=== PATIENT | female | born 1980 | race Caucasian/White ===

== ENCOUNTER 2017-10-16 15:45 | Inpatient (IN) | payer OTHER ==
[2017-10-16 17:15] LABS: BASO % 0.5 % (0-2.0); EOS % 1.3 % (0-4.5); HEMATOCRIT 36.9 % (32.4-45.2); HEMOGLOBIN 12.6 GM/dL (10.7-15.3); LYMPH % 30.2 % (8-40); MCH 30.7 pg (25.7-33.7); MEAN CELL VOLUME 90.1 fl (80-96); MEAN PLT VOLUME 9.8 fl (7.5-11.1); MONO % 6.6 % (3.8-10.2); NEUT % 61.4 % (42.8-82.8); PLATELET COUNT 203 K/MM3 (134-434); RDW 17.4 % (11.6-15.6); WHITE BLOOD COUNT 8.2 K/mm3 (4.0-10.0)
[2017-10-16] MEDS ORDERED: ELECTROLYTE-148 SOLN 500 ML IV ONE (17:15)
[2017-10-16] MEDS ORDERED: CITRIC ACID/SODIUM CITRATE 30 ML UNIT-DOSE CUP PO ONE (17:15)
[2017-10-16 17:29] LABS: INR 0.95 (0.82-1.09); PROTHROMBIN TIME (PATIENT) 10.7 SEC (9.7-13.0)
[2017-10-16 17:32] LABS: ACTIVATED PTT 30.7 SECONDS (25.2-36.5)
[2017-10-16] MEDS ORDERED: ELECTROLYTE-148 SOLN 1,000 ML IV SCH ×2 (17:45→20:00)
[2017-10-16 17:48] LABS: ANION GAP 8 (8-16); BLOOD UREA NITROGEN 7 mg/dL (7-18); CALCIUM 8.4 mg/dL (8.5-10.1); CHLORIDE 109 mmol/L (98-107); CO2 23 mmol/L (21-32); CREATININE 0.9 mg/dL (0.55-1.02); GLUCOSE,RANDOM 83 mg/dL (74-106); POTASSIUM 3.9 mmol/L (3.5-5.1); SODIUM 140 mmol/L (136-145)
[2017-10-16 18:01] VITALS: BMI 27.3
[2017-10-16] MEDS ORDERED: OXYTOCIN 20 UNITS in 0.9% NS 20 UNIT/1,000 ML INFUS.BAG IV ONE ×2 (19:44→21:42)
[2017-10-16] MEDS ORDERED: morphine SULFATE/Preservative Free 0.5 MG/ML (1cc Syringe) ONE ×2 (19:49→20:27)
[2017-10-16] MEDS ORDERED: ceFAZolin SODIUM 1 GM VIAL ONE (19:49)
[2017-10-16] MEDS ORDERED: SUCCINYLCHOLINE CHLORIDE 200 MG/10 ML VIAL ONE (19:49)
[2017-10-16] MEDS ORDERED: PROPOFOL 20 ML ONE (19:49)
[2017-10-16] MEDS ORDERED: BUPIVACAINE 0.75% IN DEXTROSE/PF 2ML AMPULE NR ONE ×2 (19:52→20:25)
--- NOTE | 2017-10-16 20:09 | HP ---
Past Medical History - Primary Care Physician PCP:: Nish Short - Admission Chief Complaint: 37yo P1 with twin at EGA 38w1d admitted for repeat C/ S in early labor. 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: No: Alzheimer's, CVA, Dementia, Migraine, Multiple Sclerosis, Peripheral Neuropathy, Parkinson's, Seizure, Syncope, TIA, Vertigo, Other Cardiovascular: No: AFIB, Aneurysm, Aortic Insufficiency, Aortic Stenosis, CAD, CHF, Deep Vein Thrombosis, HTN, Hyperlipdemia, MA, Mitral Insufficiency, Mitral Stenosis, Murmur, Pulmonary Hypertension, Other Pulmonary: No: Asthma, Bronchitis, Cancer, COPD, O2 Dependent, Pneumonia, Previously Intubated, Pulmonary Embolus, Pulmonary Fibrosis, Sleep Apnea, Other Gastrointestinal: No: Ascites, Cancer, Constipation, Crohn's Disease, Diverticulitis, Diverticulosis, Esophageal Varices, Gastritis, GERD, GI Bleed, Hemorrhoids, Hiatal Hernia, Inflamatory Bowel Disease, Irritable Bowel Disease, Pancreatitis, Peptic Ulcer Disease, Ulcerative Colitis, Other Hepatobiliary: No: Cirrhosis, Cholelithiasis, Cholecystitis, Choledocholithiasis , Hepatitis A, Hepatitis B, Hepatitis C, Other Renal/: No: Renal Failure, Renal Inusuff, BPH, Cancer, Hematuria, Hemodialysis , Neurogenic Bladder, Renal Calculi, UTI, Other Reproductive: No: Ectopic , Endometriosis, Fibroids, PID, Polycystic Ovary Syndrome, Postmenopausal, Other ...: 2 ...Para: 1 (C/S) ...Term: 1 ...: 0 ...Spon : 0 ...Induced : 0 ...Multiple Gestation: 0 ...LMP: 01/23/17 ...EDC by Sono: 10/30/17 Heme/Onc: Yes: Anemia Infectious Disease: No: AIDS, C-Diff, Herpes Zoster, HIV, MRSA, STD's, Tuberculosis, VREF, Other Psych: No: Addictions, Anxiety, Bipolar, Depression, Panic, Psychosis, Schizophrenia, Other Musculoskeletal: No: Bursitis, Chronic low back pain, Hemiparesis, Hemiplegia, Osteoarthritis, Paraplegia, Other Rheumatology: No: Fibromyalgia, Gout, Lupus, Rheumatoid Arthritis, Sarcoidosis, Vasculitis, Other ENT: No: Allergic Rhinitis, Sinusitis, Other Endocrine: No: Emanuel's Disease, Oz's Disease, Diabetes Insipidus, Diabetes Mellitus, Hyperparathyroidism, Hyperthyroidism, Hypothyroidism, Osteopenia, SIADH, Other Dermatology: No: Basal Cell, Cellulitis, Eczema, Melanoma, Psoriasis, Squamous Cell, Other - Past Surgical History Past Surgical History: Yes: , Tonsillectomy Hx Myomectomy: No Hx Transabdominal Cerclage: No Additional Surgical History: Breast Augmentation, nasal surgery x 2 - Smoking History Smoking history: Never smoked Have you smoked in the past 12 months: No - Alcohol/Substance Use Hx Alcohol Use: No History of Substance Use: reports: None - Social History Usual Living Arrangement: Yes: With Spouse, With Child ADL: Independent History of Recent Travel: No Home Medications - Allergies Allergies/Adverse Reactions: Allergies Allergy/AdvReac Type Severity Reaction Status Date / Time No Known Drug Allergies Allergy Verified 10/16/17 18:38 medical tape Allergy Intermediate Rash Uncoded 10/16/17 18:30 - Home Medications Home Medications: Ambulatory Orders Vit No.130/Iron/Folic [ Vitamins] 1 each PO DAILY 06/09/14 Family Disease History - Family Disease History Family History: Unremarkable Review of Systems - Review of Systems Constitutional: reports: Other (contractions) Eyes: reports: No Symptoms HENT: reports: No Symptoms Neck: reports: No Symptoms Cardiovascular: reports: No Symptoms Respiratory: reports: No Symptoms Gastrointestinal: reports: No Symptoms Genitourinary: reports: No Symptoms Breasts: reports: No Symptoms Reported Musculoskeletal: reports: No Symptoms Integumentary: reports: No Symptoms Neurological: reports: No Symptoms Endocrine: reports: No Symptoms Hematology/Lymphatic: reports: No Symptoms Psychiatric: reports: No Symptoms Pain Intensity: 3 Physical Exam - Maternity Vital Signs: Vital Signs Temperature 98.6 F 10/16/17 18:00 Pulse Rate 80 10/16/17 18:00 Respiratory Rate 20 10/16/17 18:00 Blood Pressure 110/70 10/16/17 18:00 O2 Sat by Pulse Oximetry (%) Constitutional: Yes: Well Nourished, No Distress, Calm Eyes: Yes: WNL, Conjunctiva Clear HENT: Yes: WNL, Atraumatic, Normocephalic Neck: Yes: WNL, Supple, Trachea Midline Cardiovascular: Yes: WNL, Regular Rate and Rhythm Lungs: Clear to auscultation, Normal air movement Breast(s): Yes: WNL - Abdominal Exam/OB Fundal Height: 42 Number of Fetuses: Multiple Presentation: Vertex Contractions: Yes Regularity: Irregular Intensity: Mild Monitor Mode: External Heart Rate (range): 140 Heart Rate Location: Midline Category: I Accelerations: Non-Uniform Decelerations: None - Vaginal Exam/OB Vaginal Bleediing: No Speculum Exam: No Dilatation (cm): 3 Effacement (%): 90 Amniotic Membrane Status: Bulging Presentation: Vertex/Position Station: -3 - Physical Exam Musculoskeletal: Yes: WNL Extremities: Yes: WNL Edema: Yes Edema: LLE: Trace, RLE: Trace Integumentary: Yes: WNL Deep Tendon Reflex Grade: Normal +2 ...Motor Strength: WNL Psychiatric: Yes: WNL, Alert, Oriented - Labs Lab Results: CBC, BMP 10/16/17 17:00 10/16/17 17:00 Hemorrhage Risk Assessment - Risk Factors Medium Risk Factors: Yes: Prior , uterine surgery,or multiple laparotomies, Multiple gestation High Risk Factors: Yes: None Risk Score: 2 Risk Level: High Risk Imaging - Results Ultrasound: Report Reviewed Assessment/Plan 37yo P1 with twin at EGA 38w1d admitted for repeat C/S in early labor. We discussed the risks and benefits of C/S at length, including but not limited to scarring, pain, bleeding, infection, injury to underlying organs and structures, need for additional surgery to repair/treat any problems or complications, complications/injuries, etc. The pt verbalized her understanding and requested to proceed with surgery. The pt is aware that all surgeries have risks and no guarantees can be provided.
[2017-10-16] MEDS ORDERED: ONDANSETRON 4 MG/2 ML VIAL IVPUSH PRN (20:11)
[2017-10-16] MEDS ORDERED: MIDAZOLAM HCL 2 MG/2 ML SINGLE DOSE VIAL ONE (21:32)
[2017-10-16] MEDS ORDERED: IBUPROFEN 800 MG/8 ML IJ IVPB PRN (22:01)
[2017-10-16] MEDS ORDERED: METHYLERGONOVINE MALEATE 0.2 MG/1 ML AMP IM PRN (22:01)
--- NOTE | 2017-10-16 22:08 | OP ---
Operative Note - Note: Operative Date: 10/16/17 Pre-Operative Diagnosis: at EGA 38w1d with twin gestation. Prior C/ S. Spont labor Operation: Repeat LT C/S Findings: Live baby girl in vtx presentation Live baby boy in vtx presentation No meconium in amniotic fluid Normal ovaries, tubes, uterus Post-Operative Diagnosis: Same as Pre-op Surgeon: Nish Short Manager Golf: Ligia Liu Anesthesiologist/FRAME MAKER: Bart Avalos Anesthesia: Spinal Specimens Removed: Placenta Estimated Blood Loss (mls): 700 Drains & Tubes with Location: Figueroa cath Drains, Volume Out (mls): 300 Blood Volume Replaced (mls): 0 Fluid Volume Replaced (mls): 1,900 Operative Report Dictated: Yes
[2017-10-16] MEDS ORDERED: OXYTOCIN 20 UNITS in 0.9% NS 20 UNIT/1,000 ML INFUS.BAG IV SCH (22:15)
[2017-10-16] MEDS ORDERED: ONDANSETRON 4 MG/2 ML VIAL ONE (22:20)
--- NOTE | 2017-10-17 07:51 | OP ---
DATE OF OPERATION: 10/16/2017 PREOPERATIVE DIAGNOSIS: at estimated gestational age of 38 weeks and 1 day, twin gestation, previous section, spontaneous labor. POSTOPERATIVE DIAGNOSIS: at estimated gestational age of 38 weeks and 1 day, twin gestation, previous section, spontaneous labor, delivered. PROCEDURE: Repeat low transverse section via Pfannenstiel skin incision. SURGEON: Nish Short MD LAUNDRY EQUIPMENT OPERATOR: Ligia Liu MD ANESTHESIOLOGIST: Bart Avalos MD ANESTHESIA: Spinal. COMPLICATIONS: None. PATHOLOGY: Placenta. ESTIMATED BLOOD LOSS: 700 mL. URINE OUTPUT: Clear urine, 300 mL, at the end of the procedure. INTRAVENOUS FLUIDS: Crystalloid, 1900 mL. FINDINGS: Live baby girl in vertex presentation. No meconium in amniotic fluids. Live baby boy in vertex presentation. No meconium in amniotic fluid. Normal ovaries, fallopian tubes, and normal uterus. DESCRIPTION OF PROCEDURE: The patient was met preoperatively. Risks, benefits, and alternatives of surgery were discussed in details. All questions were answered. The patient was then brought to the OR with IV running. She was placed on the surgical table in the supine position. The patient was the sat up to a sitting position, and spinal anesthesia was achieved without difficulty. The patient was then placed in a supine position with a leftward tilt. The Figueroa catheter was inserted and left to drain to gravity. The patient was prepped and draped in the usual sterile fashion. A time-out was conducted as per standard protocol. The surgeons then proceeded with the section. A Pfannenstiel skin incision was made with the knife along the prior scar. The incision was taken down to the level of fascia. The fascia was incised in the midline, and the incision was extended bilaterally using Gibbs scissors. The fascia was dissected away from the rectus muscles superiorly and inferiorly using sharp dissection. The rectus muscles were in the midline. The peritoneum was entered sharply. The peritoneal incision was extended superiorly and inferiorly using Metzenbaum scissors. The bladder was then dissected away from the lower uterine segment using sharp dissection. The bladder was reflected downwards using a Meliton retractor. The uterus was entered transversely in the lower uterine segment. The uterine incision was extended bilaterally using bandage scissors. The amniotic sac of baby A was ruptured, and no meconium was noted. The baby A was delivered from vertex presentation. The baby was a girl, crying spontaneously. The umbilical cord was clamped and cut, and the baby was handed to the awaiting reclaimer. The second amniotic sac was then ruptured, and no meconium was noted. Baby B was delivered from vertex presentation without complications. Baby B was a boy and crying spontaneously. The umbilical cord was clamped and cut, and the baby was handed to the awaiting reclaimer. The placenta was then expressed manually. The placenta was sent to Pathology. The uterus was cleared of all clots and debris using moist laparotomy labs. The uterine incision was repaired using a 0 Biosyn suture with a running locking stitch. Good hemostasis was noted. The uterine incision was then imbricated using a secondary layer of closure with a Biosyn suture. Once again, good hemostasis was confirmed. The bladder peritoneum was then approximated using a running 0 Biosyn suture. The operative site was irrigated using copious amounts of normal saline. Once the saline was aspirated, good hemostasis was confirmed. The abdominal peritoneum was closed using a 2-0 chromic suture with a running stitch. The rectus muscles were approximated in the midline using several interrupted 2-0 chromic sutures. The fascia was closed using a 0 Vicryl suture in 2 segments with good hemostasis and approximation. The subcutaneous adipose tissues and Scarpas fascia were approximated using several interrupted 2-0 chromic sutures. The skin was then closed using a 4-0 Vicryl suture with a subcutaneous stitch. Sponge, lap, and needle counts were correct. The patient tolerated the procedure well and was transferred to the recovery room in stable condition. Mundo [id number]
[2017-10-17 08:24] LABS: BASO % 0.4 % (0-2.0); EOS % 0.1 % (0-4.5); HEMATOCRIT 41.6 % (32.4-45.2); HEMOGLOBIN 13.8 GM/dL (10.7-15.3); LYMPH % 15.3 % (8-40); MCH 30.7 pg (25.7-33.7); MCHC 33.3 g/dl (32.0-36.0); MEAN CELL VOLUME 92.2 fl (80-96); MEAN PLT VOLUME 9.8 fl (7.5-11.1); MONO % 6.2 % (3.8-10.2); PLATELET COUNT 175 K/MM3 (134-434); RBC 4.51 M/mm3 (3.60-5.2); RDW 17.2 % (11.6-15.6); WHITE BLOOD COUNT 15.6 K/mm3 (4.0-10.0)
[2017-10-17] MEDS: PRENATAL VITAMINS W/ FOLIC ACID TABLET (FP) PO SCH (09:22)
[2017-10-17] MEDS: ENOXAPARIN NA (PORCINE) 40 MG/0.4 ML DISP.SYRIN SQ SCH (09:22)
[2017-10-17] MEDS ORDERED: TUBERCULIN PPD 5 TU/0.1ML SYRINGE (IN PATIENT USE ONLY) ID ONE (10:00)
--- NOTE | 2017-10-17 10:58 | PN ---
Post Progress Note - Subjective Subjective: No complains Post Day: 1 Type of Delivery: Repeat C/S Vital Signs: Vital Signs Temperature 97.7 F 10/17/17 09:44 Pulse Rate 52 L 10/17/17 09:44 Respiratory Rate 20 10/17/17 10:00 Blood Pressure 132/73 10/17/17 09:44 O2 Sat by Pulse Oximetry (%) 99 10/16/17 23:45 Breast Exam: Yes: Soft Uterus: Yes: Fundus Firm Incision: Yes: Dressing dry and intact Abdomen/GI: Yes: Abdomen soft Lochia: Yes: Rubra Lochia, amount: Heavy (Dark clots expressed) Extremities: Yes: Calves non-tender Perineum: Yes: Intact Activity: Ambulating - Labs Labs: CBC WBC 15.6 K/mm3 (4.0-10.0) H 10/17/17 07:40 RBC 4.51 M/mm3 (3.60-5.2) 10/17/17 07:40 Hgb 13.8 GM/dL (10.7-15.3) 10/17/17 07:40 Hct 41.6 % (32.4-45.2) 10/17/17 07:40 MCV 92.2 fl (80-96) 10/17/17 07:40 MCH 30.7 pg (25.7-33.7) 10/17/17 07:40 MCHC 33.3 g/dl (32.0-36.0) 10/17/17 07:40 RDW 17.2 % (11.6-15.6) H 10/17/17 07:40 Plt Count 175 K/MM3 (134-434) 10/17/17 07:40 MPV 9.8 fl (7.5-11.1) 10/17/17 07:40 Absolute Neuts (auto) 12.1 # 10/17/17 07:40 Neutrophils % 78.0 % (42.8-82.8) D 10/17/17 07:40 Lymphocytes % 15.3 % (8-40) D 10/17/17 07:40 Monocytes % 6.2 % (3.8-10.2) 10/17/17 07:40 Eosinophils % 0.1 % (0-4.5) D 07/10/18 07:40 Basophils % 0.4 % (0-2.0) 10/17/17 07:40 Nucleated RBC % 0 % (0-0) 10/17/17 07:40 Assessment/Plan 37yo POD #1 s/p Repeat c/section Doing well, VSS, Afebrile Figueroa to be d/nuha @ noon, continue routine care Rh positive, no need for RhoGam
--- NOTE | 2017-10-17 14:17 | PN ---
Progress Note (short form) - Note Progress Note: Anesthesia Post-op Note Pt s/p on 10/16/17 with spinal + duramorph. Pt reports that she is feeling well. Reports pain in lower abdomen controlled on current regimen. Reports normal strength and sensation in lower extremities. Tolerating PO and ambulating without issue. Vital Signs Temperature 97.7 F 10/17/17 09:44 Pulse Rate 52 L 10/17/17 09:44 Respiratory Rate 20 10/17/17 12:00 Blood Pressure 132/73 10/17/17 09:44 O2 Sat by Pulse Oximetry (%) 99 10/16/17 23:45 Continue current regimen. Encourage ambulation. Bowel regimen with pain medication.
[2017-10-17] MEDS: oxyCODONE HCL 5 MG TABLET PO PRN ×2 (15:05→23:33)
[2017-10-17] MEDS: SIMETHICONE 80 MG TAB.CHEW (FP) PO PRN ×2 (15:05→23:34)
[2017-10-17] MEDS: IBUPROFEN 600 MG TABLET (FP) PO PRN ×2 (15:06→23:33)
[2017-10-17] MEDS ORDERED: BISACODYL 10 MG SUPP.RECT RC PRN (22:01)
[2017-10-18] MEDS: oxyCODONE HCL 5 MG TABLET PO PRN ×4 (07:25→23:15)
[2017-10-18] MEDS: SIMETHICONE 80 MG TAB.CHEW (FP) PO PRN ×4 (07:25→23:15)
[2017-10-18] MEDS: IBUPROFEN 600 MG TABLET (FP) PO PRN ×4 (07:26→23:15)
--- NOTE | 2017-10-18 08:28 | PN ---
Post Progress Note - Subjective Subjective: No complaints Post Day: 2 Type of Delivery: Repeat C/S Vital Signs: Vital Signs Temperature 97.9 F 10/17/17 22:00 Pulse Rate 60 10/17/17 22:00 Respiratory Rate 20 10/17/17 22:00 Blood Pressure 104/55 10/17/17 22:00 O2 Sat by Pulse Oximetry (%) 99 10/16/17 23:45 Breast Exam: Yes: Soft Uterus: Yes: Fundus Firm, Fundus below umbilicus, Non-tender Incision: Yes: Sutures intact Abdomen/GI: Yes: Abdomen soft, Passing flatus, Tolerating PO Lochia: Yes: Rubra Lochia, amount: Small Extremities: Yes: Calves non-tender Perineum: Yes: Intact Activity: Ambulating - Labs Labs: CBC WBC 15.6 K/mm3 (4.0-10.0) H 10/17/17 07:40 RBC 4.51 M/mm3 (3.60-5.2) 10/17/17 07:40 Hgb 13.8 GM/dL (10.7-15.3) 10/17/17 07:40 Hct 41.6 % (32.4-45.2) 10/17/17 07:40 MCV 92.2 fl (80-96) 10/17/17 07:40 MCH 30.7 pg (25.7-33.7) 10/17/17 07:40 MCHC 33.3 g/dl (32.0-36.0) 10/17/17 07:40 RDW 17.2 % (11.6-15.6) H 10/17/17 07:40 Plt Count 175 K/MM3 (134-434) 10/17/17 07:40 MPV 9.8 fl (7.5-11.1) 10/17/17 07:40 Absolute Neuts (auto) 12.1 # 10/17/17 07:40 Neutrophils % 78.0 % (42.8-82.8) D 10/17/17 07:40 Lymphocytes % 15.3 % (8-40) D 10/17/17 07:40 Monocytes % 6.2 % (3.8-10.2) 10/17/17 07:40 Eosinophils % 0.1 % (0-4.5) D 10/17/17 07:40 Basophils % 0.4 % (0-2.0) 10/17/17 07:40 Nucleated RBC % 0 % (0-0) 10/17/17 07:40 Assessment/Plan 37yo P2 s/p repeat LT C/S, doing well stable, afebrile. care instructions reviewed. Continue routine postop care. Discharge instructions reviewed Ambulation encouraged.
--- NOTE | 2017-10-18 08:33 | DS ---
Physical Exam-OPTOMETRIST/PRACTICE OWNER Vital Signs: Vital Signs Temperature 97.9 F 10/17/17 22:00 Pulse Rate 60 10/17/17 22:00 Respiratory Rate 20 10/17/17 22:00 Blood Pressure 104/55 10/17/17 22:00 O2 Sat by Pulse Oximetry (%) 99 10/16/17 23:45 Constitutional: Yes: Well Nourished, No Distress, Calm Eyes: Yes: WNL, Conjunctiva Clear HENT: Yes: WNL, Atraumatic, Normocephalic Neck: Yes: WNL, Supple, Trachea Midline Cardiovascular: Yes: WNL, Regular Rate and Rhythm Respiratory: Yes: WNL, Regular, CTA Bilaterally Gastrointestinal: Yes: WNL, Normal Bowel Sounds, Soft ...Rectal Exam: Yes: Deferred Renal/: Yes: WNL External Genitalia: Yes: Normal Internal Exam Deferred: Yes ....Post : Yes: Uterus firm, Uterus non-tender, Slight lochia rubra Breast(s): Yes: WNL Musculoskeletal: Yes: WNL Extremities: Yes: WNL Edema: Yes Edema: LLE: Trace, RLE: Trace Integumentary: Yes: WNL Wound/Incision: Yes: Clean/Dry, Well Approximated, Sutures Intact Neurological: Yes: WNL, Alert, Oriented ...Motor Strength: WNL Psychiatric: Yes: WNL, Alert, Oriented Labs: CBC, BMP 10/17/17 07:40 10/16/17 17:00 Delivery - Delivery Section: Repeat, Low Flap Transverse Type of Anesthesia: Spinal Episiotomy/Laceration: None EBL (cc): 700 Delivery, Single - [place] Feeding Plan Initial Plan: Exclusive throughout hospitalization Delivery, Multiple Births - Stages of Labor Delivery Baby "A" Date: 10/16/17 Time: 21:03 Placenta/Membranes "A" Date: 10/16/17 Time: 21:07 Delivery Baby "B" Date: 10/16/17 Time: 21:05 Placenta/Membranes "B" Date: 10/16/17 Time: 21:07 - Condition of Multiple Births [place] 1 (A) Seafood Preparer/Director Mortgage Present: Yes Seafood Preparer: Ervin Adkins Gender: Female Weight: 2.892 kg Position: Left, OA Total Hours ROM (HRS/MINS): 5 minutes Placenta: Yes: Spontaneous, Normal Configuration [place] 2 (B) Seafood Preparer/Director Mortgage Present: Yes Seafood Preparer: Ervin Adkins Infant Gender: Male Weight: 3.952 kg Position: Right, OA Total Hours ROM (HRS/MINS): 5 minutes Placenta: Yes: Spontaneous, Normal Configuration - [place] 1 (A) 1 Minute Score: 9 1 (A) 5 Minutes Score: 9 [place] 2 (B) 1 Minute Score: 9 2 (B) 5 Minutes Score: 9 Discharge Summary Reason For Visit: C SECTION Twin , prior C/S, spont labor, AMA Procedures: Principal: Repeat LT C/S Hospital Course: Normal recovery Condition: Good - Instructions Diet, Activity, Other Instructions: Physical activity Resume your normal everyday activity as tolerated no heavy lifting or exercise until seen by your surgeon. You may walk unlimited ramon of and climb stairs. You may resume driving the car when you feel safe and comfortable behind the wheel. No sexual activity as instructed. Wound care If you have a bandage, leave it on, and keep dry for 48-72 hours. After that time discard the outer bandage. If they are tapes on the skin under the out of bandage leave them in place. They will peel off in the next 7 to 10 days. Do Not Peel them off. You may shower the day after surgery. If there are tapes present on the skin, you may shower over them. Diet There are no dietary restrictions. Eat healthy, high-fiber foods. Drink 6 to 8 glasses of liquid each day. This will assist in keeping your bowels are regular. Pain management You may take Tylenol or acetaminophen or Ibuprofen (for example, Motrin, Advil etc.) from my pain prescription medication is ordered should be taken as prescribed for moderate to severe pain. Call MD for any of the following: Severe pain not relieved by medication Fever of 101 or higher Excessive bleeding or drainage on dressing Inability to urinate Referrals: Nish Short MD [Staff Physician] - Disposition: HOME - Home Medications Comprehensive Discharge Medication List: Ambulatory Orders Vit No.130/Iron/Folic [ Vitamins] 1 each PO DAILY 06/09/14
[2017-10-18] MEDS: PRENATAL VITAMINS W/ FOLIC ACID TABLET (FP) PO SCH (10:50)
[2017-10-18] MEDS: ENOXAPARIN NA (PORCINE) 40 MG/0.4 ML DISP.SYRIN SQ SCH (10:50)
--- NOTE | 2017-10-19 00:46 | PN ---
Post Progress Note - Subjective Subjective: Patient without acute complaints. Reports tolerating oral intake without nausea or vomiting. Ambulating without dizziness. Denies fevers or chills. Pain well controlled with oral pain medication. without difficulty. Passing flatus. Post Day: 3 Type of Delivery: Repeat C/S Vital Signs: Vital Signs Temperature 98.0 F 10/18/17 21:17 Pulse Rate 71 10/18/17 21:17 Respiratory Rate 20 10/18/17 21:17 Blood Pressure 126/83 10/18/17 21:17 O2 Sat by Pulse Oximetry (%) 99 10/16/17 23:45 Breast Exam: Yes: Engorged Uterus: Yes: Fundus Firm, Fundus below umbilicus Incision: Yes: Sutures intact. No: Redness, Oozing Abdomen/GI: Yes: Abdomen soft, Abdominal Distention, Tender (incisional), Passing flatus, Tolerating PO Lochia: Yes: Serosa Lochia, amount: Small Extremities: Yes: Calves non-tender, Edema (trace) Activity: Ambulating - Labs Labs: CBC WBC 15.6 K/mm3 (4.0-10.0) H 10/17/17 07:40 RBC 4.51 M/mm3 (3.60-5.2) 10/17/17 07:40 Hgb 13.8 GM/dL (10.7-15.3) 10/17/17 07:40 Hct 41.6 % (32.4-45.2) 10/17/17 07:40 MCV 92.2 fl (80-96) 10/17/17 07:40 MCH 30.7 pg (25.7-33.7) 10/17/17 07:40 MCHC 33.3 g/dl (32.0-36.0) 10/17/17 07:40 RDW 17.2 % (11.6-15.6) H 10/17/17 07:40 Plt Count 175 K/MM3 (134-434) 10/17/17 07:40 MPV 9.8 fl (7.5-11.1) 10/17/17 07:40 Absolute Neuts (auto) 12.1 # 10/17/17 07:40 Neutrophils % 78.0 % (42.8-82.8) D 10/17/17 07:40 Lymphocytes % 15.3 % (8-40) D 10/17/17 07:40 Monocytes % 6.2 % (3.8-10.2) 10/17/17 07:40 Eosinophils % 0.1 % (0-4.5) D 10/17/17 07:40 Basophils % 0.4 % (0-2.0) 10/17/17 07:40 Nucleated RBC % 0 % (0-0) 10/17/17 07:40 Assessment/Plan 37 yo POD # 3 s/p CD, afebrile, vital signs stable, doing well 1. Patient desires discharge home tomorrow. 2. Patient encouraged to contact MD for: - Severe pain not controlled by oral pain medication - Fevers or chills - Nausea or vomiting, intolerance of oral intake - Incision redness, tenderness or discharge 3. Patient to follow up in office in 1-2 weeks for incision check, 4-6 weeks for visit
[2017-10-19 07:23] LABS: BASO % 0.8 % (0-2.0); EOS % 2.6 % (0-4.5); HEMATOCRIT 35.5 % (32.4-45.2); HEMOGLOBIN 12.4 GM/dL (10.7-15.3); LYMPH % 28.1 % (8-40); MCH 31.7 pg (25.7-33.7); MCHC 34.9 g/dl (32.0-36.0); MEAN CELL VOLUME 90.9 fl (80-96); MONO % 6.9 % (3.8-10.2); NEUT % 61.6 % (42.8-82.8); PLATELET COUNT 212 K/MM3 (134-434); RBC 3.91 M/mm3 (3.60-5.2); RDW 17.7 % (11.6-15.6); WHITE BLOOD COUNT 9.8 K/mm3 (4.0-10.0)
[2017-10-19] MEDS: PRENATAL VITAMINS W/ FOLIC ACID TABLET (FP) PO SCH (10:00)
[2017-10-19] MEDS: ENOXAPARIN NA (PORCINE) 40 MG/0.4 ML DISP.SYRIN SQ SCH (10:00)
[2017-10-19] MEDS: IBUPROFEN 600 MG TABLET (FP) PO PRN ×2 (17:54→22:35)
[2017-10-19] MEDS: SIMETHICONE 80 MG TAB.CHEW (FP) PO PRN ×2 (17:55→22:35)
[2017-10-19] MEDS ORDERED: oxyCODONE HCL 5 MG TABLET PO PRN (22:22)
[2017-10-19] MEDS ORDERED: ACETAMINOPHEN 325 MG TABLET (FP) PO PRN (22:23)
[2017-10-19] MEDS ORDERED: SENNOSIDES 8.6MG TABLET (FP) PO PRN (22:42)
[2017-10-19] MEDS ORDERED: SENNOSIDES/DOCUSATE COMBO (SENNA PLUS) TABLET (UD) PO PRN (23:05)
--- NOTE | 2017-10-20 07:33 | PN ---
Progress Note (short form) - Note Progress Note: pod 4 , doing well, ambulating CBC, BMP 10/19/17 06:30 10/16/17 17:00 abdomen soft, no distension, no cva uterus firm, lnon tender lochia mild no calf tenderness plan d/c home today , follow up office 1 week
[2017-10-20 08:22] VITALS: BP 115/84; PULSE 83; TEMP 98.6
[2017-10-20] MEDS: PRENATAL VITAMINS W/ FOLIC ACID TABLET (FP) PO SCH (09:32)
[2017-10-20] MEDS: ENOXAPARIN NA (PORCINE) 40 MG/0.4 ML DISP.SYRIN SQ SCH (09:32)
== END 2017-10-20 10:40 | disposition home or self-care (01) | DRG 765 ==
LOC: JLDR 15:45 → J3W 10-17 00:30
PROVIDERS: ADMIT Obstetrics & Gynecology; ATTEND Obstetrics & Gynecology
PROC: 10D00Z1 Extraction of Products of Conception, Low, Open Approach (ICD-10-PCS; principal; 2017-10-16)
DX: O30.043 Twin pregnancy, dichorionic/diamniotic, third trimester (principal); O36.0930 Maternal care for other rhesus isoimmunization, third trimester, not applicable or unspecified; O34.211 Maternal care for low transverse scar from previous cesarean delivery; O99.824 Streptococcus B carrier state complicating childbirth; Z3A.38 38 weeks gestation of pregnancy; Z37.2 Twins, both liveborn
CPT/HCPCS: 36415; 80048; 85025; 85610; 85730; 86593; 86850; 86900; 86901

== ENCOUNTER 2022-12-03 02:40 | Inpatient (IN) | payer OTHER ==
[2022-12-03] MEDS ORDERED: OXYTOCIN 30 UNITS in 0.9% NS 30 UNIT/500 ML INFUS.BAG IVPB ONE (03:44)
[2022-12-03] MEDS ORDERED: ONDANSETRON 4 MG/2 ML VIAL ONE (03:45)
[2022-12-03] MEDS ORDERED: METOCLOPRAMIDE HCL INJECTION 10 MG/2 ML VIAL ONE (03:45)
[2022-12-03] MEDS ORDERED: PHENYLEPHRINE HCL 10 MG/1 ML SINGLE DOSE VIAL ONE (03:45)
[2022-12-03] MEDS ORDERED: ceFAZolin SODIUM 1 GM VIAL ONE (03:45)
[2022-12-03] MEDS ORDERED: DEXAMETHASONE SOD PHOSPHATE 4 MG/1 ML VIAL ONE (03:45)
[2022-12-03] MEDS ORDERED: FENTANYL CITRATE/PF 50 MCG/ML VIAL ONE (03:49)
[2022-12-03] MEDS ORDERED: morphine SULFATE/PF 1 MG/2 ML (2cc Syringe - QUVA) ONE (03:49)
[2022-12-03] MEDS ORDERED: morphine SULFATE/PF 1 MG/2 ML (2cc Syringe - QUVA) IT ONE (04:18)
[2022-12-03 04:48] VITALS: BMI 29.5
[2022-12-03] MEDS ORDERED: KETOROLAC TROMETHAMINE 60 MG/2 ML VIAL ONE (05:05)
[2022-12-03] MEDS ORDERED: BENZOCAINE 20% 57 GM BOTTLE TP PRN (05:43)
[2022-12-03] MEDS ORDERED: SENNOSIDES/DOCUSATE COMBO (SENNA PLUS) TABLET (UD) PO PRN (05:43)
[2022-12-03] MEDS ORDERED: IBUPROFEN 800 MG/8 ML IJ IVPB PRN (05:43)
[2022-12-03] MEDS ORDERED: BENZOCAINE 28 GM HEMORRHOIDAL OINTMENT TP PRN (05:43)
[2022-12-03] MEDS ORDERED: METHYLERGONOVINE MALEATE 0.2 MG/1 ML AMP IM PRN (05:43)
[2022-12-03] MEDS ORDERED: WITCH HAZEL 50% (TUCKS) 40 PAD/JAR PAD TP PRN (05:43)
[2022-12-03 05:46] LABS: CORD BASE EXCESS -6.5 mmol/L (0-2); CORD HCO3 21.3 mmHg (20-29); CORD pH 7.239 (7.14-7.44)
[2022-12-03 05:49] LABS: CORD HCO3 23.2 mmHg (20-29); CORD PCO2 60.2 mmHg (30-78); CORD pH 7.204 (7.14-7.44)
[2022-12-03] MEDS ORDERED: FAMOTIDINE 20 MG/50 ML IVPB 20 MG/50 ML MG IVPB ONE (06:00)
[2022-12-03] MEDS ORDERED: ONDANSETRON 4 MG/2 ML VIAL IVPUSH PRN (06:00)
[2022-12-03] MEDS ORDERED: OXYTOCIN 20 UNITS in 0.9% NS 20 UNIT/1,000 ML INFUS.BAG IV ONE ×2 (07:13→16:35)
[2022-12-03] MEDS: OXYTOCIN 20 UNITS in 0.9% NS 20 UNIT/1,000 ML INFUS.BAG IV SCH ×2 (07:15→16:54)
[2022-12-03] MEDS: PRENATAL VITAMINS W/ FOLIC ACID TABLET (FP) PO SCH (10:00)
[2022-12-03] MEDS: CEFAZOLIN 1 GM in DEXTROSE 5%-WATER - 50 ML IVPB SCH ×2 (11:00→19:05)
[2022-12-03] MEDS ORDERED: oxyCODONE HCL 5 MG TABLET PO PRN ×2 (17:44)
[2022-12-04] MEDS: CEFAZOLIN 1 GM in DEXTROSE 5%-WATER - 50 ML IVPB SCH (01:47)
[2022-12-04] MEDS: IBUPROFEN 600 MG TABLET (FP) PO PRN ×3 (04:34→17:32)
[2022-12-04] MEDS: SIMETHICONE 80 MG TAB.CHEW (FP) PO PRN ×2 (04:34→20:30)
[2022-12-04] MEDS ORDERED: BISACODYL 10 MG SUPP.RECT RC PRN (05:44)
[2022-12-04 08:01] LABS: BASO % 0.6 % (0-2.0); EOS % 0.8 % (0-4.5); HEMATOCRIT 31.9 % (32.4-45.2); HEMOGLOBIN 10.7 GM/dL (10.7-15.3); LYMPH % 24.4 % (8-40); MCH 31.1 pg (25.7-33.7); MCHC 33.5 g/dl (32.0-36.0); MEAN CELL VOLUME 92.8 fl (80-96); MEAN PLT VOLUME 9.5 fl (7.5-11.1); MONO % 6.3 % (3.8-10.2); NEUT % 67.9 % (42.8-82.8); PLATELET COUNT 202 10^3/uL (134-434); RBC 3.44 M/mm3 (3.60-5.2); RDW 15.9 % (11.6-15.6); WHITE BLOOD COUNT 12.7 K/mm3 (4.0-10.0)
[2022-12-04] MEDS: PRENATAL VITAMINS W/ FOLIC ACID TABLET (FP) PO SCH (10:41)
[2022-12-04] MEDS: ACETAMINOPHEN 325 MG TABLET (FP) PO PRN (20:30)
[2022-12-04] MEDS: diphenhydrAMINE HCL 25 MG CAPSULE (FP) PO PRN (20:33)
[2022-12-04] MEDS: HYDROCORTISONE 1% TOPICAL CREAM 30 GM TUBE TP SCH (21:33)
[2022-12-05] MEDS: IBUPROFEN 600 MG TABLET (FP) PO PRN ×3 (02:15→19:55)
[2022-12-05] MEDS: diphenhydrAMINE HCL 25 MG CAPSULE (FP) PO PRN (02:15)
[2022-12-05] MEDS: SIMETHICONE 80 MG TAB.CHEW (FP) PO PRN ×3 (02:15→19:56)
[2022-12-05] MEDS: HYDROCORTISONE 1% TOPICAL CREAM 30 GM TUBE TP SCH (06:12)
[2022-12-05] MEDS: PRENATAL VITAMINS W/ FOLIC ACID TABLET (FP) PO SCH (10:12)
[2022-12-05] MEDS ORDERED: HYDROCORTISONE 2.5% TOPICAL CREAM 30 GM TUBE TP SCH (14:00)
[2022-12-05] MEDS: ACETAMINOPHEN 325 MG TABLET (FP) PO PRN ×2 (14:47→22:06)
[2022-12-05] MEDS: TRIAMCINOLONE ACET 0.5% OINT 15 GM TUBE TP SCH ×2 (16:05→22:00)
[2022-12-06] MEDS: IBUPROFEN 600 MG TABLET (FP) PO PRN (03:33)
[2022-12-06] MEDS: diphenhydrAMINE HCL 25 MG CAPSULE (FP) PO PRN (03:33)
[2022-12-06] MEDS: ACETAMINOPHEN 325 MG TABLET (FP) PO PRN (06:24)
[2022-12-06 08:01] VITALS: RESP 18
[2022-12-06 08:10] VITALS: BP 132/79; PULSE 76; TEMP 98.3
[2022-12-06 08:14] LABS: BASO % 0.4 % (0-2.0); EOS % 3.8 % (0-4.5); HEMATOCRIT 33.6 % (32.4-45.2); HEMOGLOBIN 11.6 GM/dL (10.7-15.3); LYMPH % 27.2 % (8-40); MCH 31.3 pg (25.7-33.7); MCHC 34.6 g/dl (32.0-36.0); MEAN CELL VOLUME 90.5 fl (80-96); MEAN PLT VOLUME 8.4 fl (7.5-11.1); MONO % 6.8 % (3.8-10.2); NEUT % 61.8 % (42.8-82.8); PLATELET COUNT 242 10^3/uL (134-434); RBC 3.71 M/mm3 (3.60-5.2); RDW 15.9 % (11.6-15.6); WHITE BLOOD COUNT 8.2 K/mm3 (4.0-10.0)
[2022-12-06] MEDS: TRIAMCINOLONE ACET 0.5% OINT 15 GM TUBE TP SCH (09:05)
[2022-12-06] MEDS: PRENATAL VITAMINS W/ FOLIC ACID TABLET (FP) PO SCH (09:06)
== END 2022-12-06 11:21 | disposition home or self-care (01) | DRG 788 ==
LOC: JLDR 02:40 → J3W 08:00
PROVIDERS: ADMIT Obstetrics & Gynecology; ATTEND Obstetrics & Gynecology
PROC: 10D00Z1 Extraction of Products of Conception, Low, Open Approach (ICD-10-PCS; principal; 2022-12-03)
PROC: 0DNW0ZZ Release Peritoneum, Open Approach (ICD-10-PCS; 2022-12-03)
DX: O34.211 Maternal care for low transverse scar from previous cesarean delivery (principal); O77.0 Labor and delivery complicated by meconium in amniotic fluid; O69.81X0 Labor and delivery complicated by cord around neck, without compression, not applicable or unspecified; O99.892 Other specified diseases and conditions complicating childbirth; N73.6 Female pelvic peritoneal adhesions (postinfective); L23.1 Allergic contact dermatitis due to adhesives; Z3A.39 39 weeks gestation of pregnancy; Z37.0 Single live birth
CPT/HCPCS: 36415; 36600; 82803; 85025; 88307-TC; 94010